=== PATIENT | male | born 1955 | race Caucasian/White ===

== ENCOUNTER → 2016-05-24 | Outpatient (CLI) | payer OTHER ==
[~2016-05-24] MED LIST: CALCIUM CITRAT1 EAC5 PO; CO Q-10100 MG PO; FIBER0.52 G1 PO; FISH OIL 1,2001 EAC3 PO; HYDROCODON-ACE1 EAC5 PO; LEVOTHYROXIN0.075 MG PO; MULTIVITAMINS PO; NAPROSYN500 MG PO; PERCOCET 10-321 EAC1 PO; POTASSIUM99 M1 PO; SM GLUCOSAMINE1 EACH PO; SUPER B COMPLE150 MG PO; VITAMIN E400 UNIT PO; VITAMINC500 PO; XARELTO10 MG PO
[2016-05-24 11:04] LABS: CREATININE 0.9 mg/dL (0.6-1.3)
== END ==
LOC: CAT 10:06
PROVIDERS: Family Medicine
DX: R10.31 Right lower quadrant pain (principal)

== ENCOUNTER 2021-04-15 14:09 | Observation (INO) | payer OTHER ==
[~2021-04-15] VITALS: Ht 182.9 cm; Wt 90.3 kg
--- NOTE | ~2021-04-15 | O ---
[facility] [place] [address] OPERATIVE REPORT Name: LIT KIRKLAND Room #: 441-P [facility] Lucius Harrington#: [id number] Admission: 04/15/21 Attend Phys: Ziggy Nash MD Discharge: 04/16/21 Date of : 55 Report #: [id number] THIS REPORT FOR: cc: Mark Buck James A. DO Akhtar, Shaan J MD ~ DATE OF SERVICE: 04/15/2021 PREPROCEDURE DIAGNOSIS: Acute appendicitis. POSTPROCEDURE DIAGNOSIS: Acute appendicitis with necrosis of the appendiceal body. PRIMARY SURGEON: Luis Enrique Rosario MD SAFETY AND HEALTH CONSULTANT: None. PROCEDURE PERFORMED: Laparoscopic appendectomy. ANESTHESIA TYPE: General. ESTIMATED BLOOD LOSS: ____ mL. SPECIMEN REMOVED: Appendix. COMPLICATIONS: None apparent. INDICATIONS: The patient is a 66-year-old male who presented to the Emergency Department with complaints of right lower quadrant pain that began the night prior to presentation. The patient went to his PCP's office where blood work and a CT scan were obtained. The CT scan demonstrated acute appendicitis without evidence of perforation. The patient denies any nausea or vomiting or history of abdominal surgeries. The risks, benefits and alternatives were discussed with the patient and he agreed to proceed with operative management at this time. PROCEDURE IN DETAIL: After informed consent was obtained, the patient was taken to the operating room and placed on the operating table in a supine position. General endotracheal anesthesia was induced per the anesthesia team and this was done without complication. The patient had recently voided, so a Stephens catheter was not placed. Preoperative antibiotics were administered. The patient's abdomen was prepped and draped in usual sterile fashion. A surgical timeout was preformed with everyone in agreement. Local anesthetic was injected into the supraumbilical location and a scalpel was used to make incision. Pneumoperitoneum was achieved with Seldinger technique. A 5 mm port was placed and the laparoscope was inserted. There was no evidence of ____ port placement. [address] [address] OPERATIVE REPORT Name: LIT KIRKLAND Room #: 441-P [facility] Lucius Harrington#: [id number] Admission: 04/15/21 Attend Phys: Ziggy Nash MD Discharge: 04/16/21 Date of : 55 Report #: [id number] The abdomen was then viewed and the appendix was located in the right lower quadrant. There was evidence of moderate to severe inflammatory changes in right lower quadrant and the appendix was visualized and demonstrated necrotic findings of the appendiceal body. There was no purulence or succus in the right lower quadrant. There was no evidence of perforation. Two additional ports were placed, one at the midline pubis which was a 5 mm port and one in the left lower quadrant which was a 12 mm port. ____ grasper was used to elevate the appendix and make a window in the mesentery at the base near the cecum. An endoscopic blue load stapler was used to fire across the base of the appendix. A LigaSure device was used to dissect and come across the mesoappendix. Hemostasis was excellent. The specimen was removed in an EndoCatch bag and passed off for pathologic evaluation. The abdomen was suctioned clean and the 12 mm port site was closed with a fascial closure device. Pneumoperitoneum was released and all incisions were closed with a 4-0 Monocryl suture. Sterile dressings were applied. The patient was allowed to awaken from anesthesia and was extubated in the room before being sent to recovery in stable condition. The patient appeared to tolerate the procedure very well. By: [id number] Luis Enrique Rosario MD /zaida
[2021-04-15 14:13] VITALS: BP 122/76
[2021-04-15 15:32] LABS: ABSOLUTE NEUTROPHILS 8.3 thou/uL (1.4-8.2); BASOPHILS 0.4 % (0.0-2.0); EOSINOPHILS 0.1 % (0.0-3.0); HEMATOCRIT 42.7 % (42.0-52.0); HEMOGLOBIN 13.9 gm/dL (14.0-18.0); MCH 29.8 pg (26.0-34.0); MCHC 32.5 g/dL (28.0-37.0); MCV 91.6 fL (80.0-100.0); PLATELET COUNT 220 thou/uL (150-400); POLYS 77.5 % (36.0-66.0); RBC 4.66 mil/uL (4.50-6.00); RDW 14.3 % (10.5-14.5); WBC 10.7 thou/uL (4.0-11.0)
[2021-04-15 15:54] LABS: ALBUMIN 3.4 g/dL (3.4-5.0); CREATININE 0.9 mg/dL (0.7-1.3); POTASSIUM 3.8 mmol/L (3.5-5.1)
[2021-04-15 15:59] LABS: CALCIUM 8.7 mg/dL (8.5-10.1)
[2021-04-15 16:08] VITALS: BP 122/76
[2021-04-15 16:14] VITALS: BP 145/77
--- NOTE | 2021-04-15 16:53 | NUR ---
Pt transferred to unit from ED. Pt a&ox4. Abd pain tolerable. Pain worse when walking. IVF and IV antibiotics infusing. Surgery scheduled for 1899. Call light within reach. Family at bedside.
[2021-04-15 19:22] VITALS: BP 163/87
--- NOTE | 2021-04-16 01:48 | NUR ---
UPON SHIFT REPORT, PT AT BEDSIDE, PT AOX4, REPORTING 2-3/10 PAIN IN ABDOMEN. PAIN NOTED TO CALM WITH REST, WORSENS WITH MOVEMENT. PT DENIES SOB WHILE ON ROOM AIR. PT VOIDING PER URINAL, DARK YELLOW URINE NOTED. DURING SHIFT ASSESSMENT, PT TAKEN TO SURGERY AT 2030 WHILE ON ROOM AIR, PERIPHERAL PULSES PALPABLE IN ALL EXTREMITIES. PT RETURNED TO FLOOR AT 2315. PT AOX4, DENIES PAIN AND SOB WHILE ON 1L O2 VIA NC, NOTABLY LETHARGIC. PT HAS PRN IV DILAUDID Q2HR AVAILABLE. PT REMAINS NPO AT THIS TIME. PT WITHOUT NAUSEA OR EMESIS. PT RESTING IN BED THROUGHOUT SHIFT, FREQUENT REPOSITIONING ENCOURAGED, PT NOTED TO SHIFT INDEPENDENTLY. SENSATION INTACT, CAPILLARY REFILL LESS THAN 3SEC, PERIPHERAL PULSES REMAIN PALPABLE IN ALL EXTREMITIES. PT ENCOURAGED TO NOTIFY STAFF FOR ALL NEEDS, CALL LIGHT WITHIN REACH, BED ALARM ON, BED LOCKED IN LOWEST POSITION, FREQUENT MONITORING WILL CONTINUE.
[2021-04-16 06:13] LABS: HEMATOCRIT 39.5 % (42.0-52.0); HEMOGLOBIN 12.8 gm/dL (14.0-18.0); MCH 29.9 pg (26.0-34.0); MCHC 32.4 g/dL (28.0-37.0); MCV 92.2 fL (80.0-100.0); RBC 4.28 mil/uL (4.50-6.00); RDW 14.3 % (10.5-14.5); WBC 9.4 thou/uL (4.0-11.0)
[2021-04-16 06:38] LABS: ALBUMIN 2.7 g/dL (3.4-5.0); CALCIUM 8.2 mg/dL (8.5-10.1); CREATININE 0.7 mg/dL (0.7-1.3); PHOSPHORUS 4.1 mg/dL (2.5-4.9); POTASSIUM 4.1 mmol/L (3.5-5.1)
[2021-04-16 07:22] VITALS: BP 103/58
--- NOTE | 2021-04-16 09:59 | NUR ---
Assumed care of pt at 0700. Pt a&ox4. Pain controlled with prn pain medications. Some blood oozing noticed from incision above belly button. Pt cleaned and small gauze applied. IVF and IV antibiotics infusing. Provider notified and diet order obtained. Family at bedside. Call light within reach. Will continue to monitor.
[2021-04-16 15:48] VITALS: BP 118/45
[2021-04-16 16:15] VITALS: BP 118/45
--- NOTE | 2021-04-20 14:48 | PATH ---
[facility] [address] [place] [address] PATHOLOGY RPT PROCEDURE Name: RAMONAMILLILIT Lanza Room #: 441-P [facility] Lucius M.R.#: [id number] Admission: 04/15/21 Date of : 55 Discharge: 04/16/21 Report #: [id number] Path Case #: [id number] [facility] Accession Number: [id number] . 01 Material submitted: . appendix - APPENDIX . 01 Clinical history: . LAPAROSCOPIC APPENDECTOMY APPENDICITIS . 02 Diagnosis: Appendix, appendectomy: - Acute appendicitis with extensive serositis. (ANK:timoteo; 04/19/2021) S 04/19/2021 1515 Local . 02 Electronically signed: . Niya Mei MD, Pathologist NPI- [id number] . 01 Gross description: . Fixative: Formalin Labeled: Appendix Appendix length: 8.7 cm Appendix diameter: 0.5-1.4 cm Mesoappendix: Up to 4.0 cm Proximal margin: Stable Serosa: Hood-german to dusky german-brown Cut surface: Pinpoint to dilated lumen filled with fecal material Luminal diameter: Up to 1.0 Perforation: None identified Lesions/abnormalities: None identified . Proximal margin and bisected tip in cassette A1. Additional direct marketing representative cross-sections in cassette A2. (CAA; 04/18/2021) QA/QA 04/18/2021 1613 Local . 02 Pathologist provided ICD-10: K35.80, K65.8 . 02 CPT . 372619 Specimen Comment: A courtesy copy of this report has been sent to [phone], [phone] Specimen Comment: [phone], [address] [address] PATHOLOGY RPT PROCEDURE Name: LIT KIRKLAND [id number] Ad[facility]: 04/15/21 Date of : 55 Discharge: 04/16/21 Report #: [id number] Path Case #: [id number] Specimen Comment: Report sent to , DR BRADLEY / DR MARISCAL Specimen Comment: A duplicate report has been generated due to demographic updates. Performed at: 01 [facility] [place] [address] [facility] [address], [place], [place] [id number] MD Chito Chou MD Phone: [phone] Performed at: [address] [id number] MD Janelle Hodge MD Phone: [phone]
--- NOTE | 2021-04-28 14:02 | H ---
[facility] [place] [address] HISTORY AND PHYSICAL Name: LIT KIRKLAND Room #: 441-P [facility] Lucius Harrington#: [id number] Admission: 04/15/21 Attend Phys: Ziggy Nash MD Discharge: 04/16/21 Date of : 55 Report #: [id number] THIS REPORT FOR: cc: Mark Buck James A. DO Gates, Clinton R. MD ~ DATE OF SERVICE: 04/15/2021 CHIEF COMPLAINT: Abdominal pain. HISTORY OF PRESENT ILLNESS: A very pleasant 66-year-old gentleman who presents to the ER with abdominal pain. He had a CT scan done just recently today that demonstrated acute appendicitis. The patient reports that his pain began last night and awoke him from sleep. The pain is the first episode. It is sharp and located in the right lower quadrant. He has associated nausea, but no vomiting. He had 5 bowel movements last night. PAST MEDICAL HISTORY: Colon polyps. PAST SURGICAL HISTORY: 1. Left hip. 2. Colonoscopy x 2. SOCIAL HISTORY: Drinks 6-7 drinks per week. Smokes 1-2 cigars per week. No recreational drug use. FAMILY HISTORY: Denies coagulopathy. Dad had prostate cancer. Brother had testicular cancer. REVIEW OF SYSTEMS: ____ GASTROINTESTINAL: See above and below. PHYSICAL EXAMINATION: VITAL SIGNS: Temperature 36.7, pulse 109, respiratory rate 12, blood pressure 122/76, pulse ox 100%. ____ ABDOMEN: Soft, tender to palpation in the right lower quadrant. No guarding, rebound or rigidity. LABORATORY DATA: Pending. DIAGNOSTIC DATA: CT of the abdomen and pelvis: Final report pending. Per verbal report from PCP and upon my review, he has acute appendicitis. ASSESSMENT AND PLAN: A 66-year-old male with acute appendicitis. [facility] [address] [place] [address] HISTORY AND PHYSICAL Name: LIT KIRKLAND Pool Room #: 441-P [facility] Lucius Harrington#: [id number] Admission: 04/15/21 Attend Phys: Ziggy Nash MD Discharge: 04/16/21 Date of : 55 Report #: [id number] 1. Admit to General Surgery. 2. N.p.o. 3. IV antibiotics. 4. IV analgesics and antiemetics. 5. IV fluid resuscitation. 6. Consent for laparoscopic appendectomy, possible open. The risks, benefits and alternatives were discussed. <ELECTRONICALLY SIGNED> By: Ziggy Nash MD 04/28/21 1402 1340 1411 Ziggy Nash MD /nt
== END 2021-04-16 17:07 | disposition home or self-care (01) ==
LOC: ER 14:09 → EROBS 15:02 → 4S 16:22
PROVIDERS: ADMIT Surgery; ATTEND Surgery
DX: K35.80 Unspecified acute appendicitis (principal); Z20.822 Contact with and (suspected) exposure to COVID-19; E03.9 Hypothyroidism, unspecified; F17.290 Nicotine dependence, other tobacco product, uncomplicated; Z79.899 Other long term (current) drug therapy
CPT/HCPCS: 50010; 50101; 50411; 50555; 50739; 51489; 52265; 53307; 53310; 53312; 54022; 54118; 56525; 56526; 58574; 58586; 58867; 58911; 62110; 62900; 65131; 70005

== ENCOUNTER → 2021-04-15 | Outpatient (CLI) | payer OTHER ==
[2021-04-15 12:08] LABS: CREATININE 0.9 mg/dL (0.7-1.3)
== END ==
LOC: CAT 09:32
PROVIDERS: ATTEND Nurse Practitioner
DX: K76.89 Other specified diseases of liver (principal); K44.9 Diaphragmatic hernia without obstruction or gangrene; K57.30 Diverticulosis of large intestine without perforation or abscess without bleeding; N40.0 Benign prostatic hyperplasia without lower urinary tract symptoms; N28.1 Cyst of kidney, acquired; R10.31 Right lower quadrant pain; R11.0 Nausea